=== PATIENT | female | born 1940 | race Caucasian/White ===

== ENCOUNTER 2018-01-12 20:20 | Inpatient (IN) | payer OTHER ==
[~2018-01-12] VITALS: Ht 154.9 cm; Wt 61.3 kg
[~2018-01-12 20:20] MED LIST: ATOR10TA68 PO; DONE10TA37 PO; LEVE500T9 PO; LISI5TAB PO; PRO40 PO
[2018-01-12 20:40] VITALS: BP_SYST 122
[2018-01-12] MEDS ORDERED: NACL 0.9% 1,000 ML IV ONE (21:15)
[2018-01-12] MEDS ORDERED: PANTOPRAZOLE SODIUM 40 MG/VIAL (PROTONIX) IVP ONE (21:15)
[2018-01-12] MEDS ORDERED: ONDANSETRON HCL 4 MG/2 ML VIAL IVP ONE (22:00)
[2018-01-12 22:18] LABS: MEAN CORPUSCULAR HEMOGLOBIN 21 pg (27-31); MEAN CORPUSCULAR HGB CONC 31 % (32-36); MEAN CORPUSCULAR VOLUME 67 fL (79.0-98.0); PLATELET COUNT (AUTO) 494 K/uL (130-430); RED BLOOD CELL COUNT(AUTO) 3.22 MIL/uL (4.2-6.2); WHITE BLOOD COUNT (AUTO) 25.2 K/uL (4.8-10.8)
[2018-01-12 22:26] LABS: HEMATOCRIT 21.6 % (36-48); HEMOGLOBIN 6.7 g/dL (12.0-16.0)
[2018-01-12 22:50] LABS: BASOPHILS % (MANUAL) 0 % (0-2); EOSINOPHILS % (MANUAL) 0 % (0-7); LYMPHOCYTES % (MANUAL) 2 % (20-46); MONOCYTES % (MANUAL) 3 % (0-11)
[2018-01-12 22:55] LABS: ANION GAP 13 (5-15); CALCIUM 10.2 mg/dL (8.4-11.0); CHLORIDE 101 mmol/L (98-107); CREATININE 2.13 mg/dL (0.55-1.30); GLUCOSE 187 mg/dL (70-99); POTASSIUM 4.3 mmol/L (3.5-5.1); SODIUM SERUM 136 mmol/L (136-145); UREA NITROGEN, BLOOD 34 mg/dL (8-21)
[2018-01-12 22:56] LABS: PROTHROMBIN TIME 9.8 SECS (9.5-12.5)
[2018-01-12 22:59] LABS: ALANINE AMINOTRANSFERASE 40 U/L (12-78); ALBUMIN 3.7 g/dL (3.4-4.8); ASPARTATE AMINOTRANSFERASE 76 U/L (10-37); TOTAL BILIRUBIN 0.4 mg/dL (0.0-1.0)
[2018-01-12] MEDS ORDERED: NACL 0.9% 500 ML IV ONE (23:00)
[2018-01-12] MEDS ORDERED: LEVOFLOXACIN 500 MG/D5W 100 ML IV ONE (23:15)
[2018-01-12] MEDS ORDERED: CLOPIDOGREL BISULFATE 75 MG TABLET PO ONE (23:15)
[2018-01-12 23:26] LABS: BILIRUBIN,URINE NEGATIVE (NEGATIVE); BLOOD, URINE 1+ (NEGATIVE); CLARITY/URINE CLOUDY (CLEAR); COLOR,URINE YELLOW (YELLOW); GLUCOSE,URINE NEGATIVE (NEGATIVE); KETONES,URINE NEGATIVE (NEGATIVE); LEUKOCYTE ESTERASE ,URINE 2+ (NEGATIVE); NITRITE, URINE POSITIVE (NEGATIVE); PROTEIN URINE NEGATIVE (NEGATIVE); UROBILINOGEN,URINE 0.2 (0.2-1.0)
[2018-01-12 23:36] LABS: BACTERIA,URINE MANY /HPF (None Seen); WBC,URINE 20-50 /HPF (0-3)
[2018-01-12] MEDS ORDERED: NACL 0.9% 1,000 ML IV SCH (23:45)
[2018-01-13] VITALS (30 sets, daily range): BP systolic 68–149
[2018-01-13] MEDS ORDERED: IPRATROPIUM/ALBUTEROL SULFATE 3 ML AMPUL.NEB INH ONE
[2018-01-13] MEDS ORDERED: NOREPINEPHRINE 4 MG/4 ML VIAL IV ONE ×5 (01:33→16:24)
[2018-01-13] MEDS: NOREPINEPHRINE BITARTRATE 4 MG in NS 246 ML IV PRN ×5 (03:54→21:51)
[2018-01-13] MEDS ORDERED: NS 500 ML IV ONE (04:15)
[2018-01-13] MEDS ORDERED: ALBUTEROL SULFATE 0.083% 2.5 MG/3 ML VIAL.NEB INH SCH (06:15)
[2018-01-13] MEDS ORDERED: IPRATROPIUM BROM 0.5 MG/2.5 ML VIAL.NEB (ATROVENT) INH SCH (06:15)
[2018-01-13] MEDS: PIPERACILLIN/TAZO 3.375/DEX-IS 50 ML IV SCH ×3 (06:15→17:54)
[2018-01-13] MEDS: levETIRAcetam 500 MG in NS 100 ML IV SCH ×3 (06:15→21:50)
[2018-01-13 07:08] LABS: HEMATOCRIT 27.6 % (36-48); HEMOGLOBIN 8.9 g/dL (12.0-16.0)
[2018-01-13] MEDS ORDERED: PANTOPRAZOLE SODIUM 80 MG in NS 100 ML IV ONE (09:00)
[2018-01-13] MEDS ORDERED: methylPREDNISolone SOD SUCC 40 MG/ML VIAL IVP SCH (09:30)
[2018-01-13] MEDS ORDERED: methylPREDNISolone SOD SUCC 40 MG/ML VIAL IVP ONE (09:30)
[2018-01-13] MEDS ORDERED: SODIUM BICARBONATE 8.4% JECT 50 MEQ/50 ML SYRINGE IVP ONE (09:30)
[2018-01-13] MEDS ORDERED: MIDAZOLAM HCL 5 MG/5 ML VIAL ONE (11:11)
[2018-01-13] MEDS ORDERED: HYDROCORTISONE SOD SUCC 100 MG/2 ML VIAL IVP ONE (13:00)
[2018-01-13] MEDS: IPRATROPIUM BROM 0.5 MG/2.5 ML VIAL.NEB (ATROVENT) INH SCH ×2 (13:00→19:43)
[2018-01-13] MEDS: ALBUTEROL SULFATE 0.083% 2.5 MG/3 ML VIAL.NEB INH SCH ×2 (13:00→19:43)
[2018-01-13] MEDS: MORPHINE 4 MG/ML INJ. SYRINGE IVP PRN (13:08)
[2018-01-13] MEDS: LORazepam 2 MG/ML VIAL IVP PRN (13:08)
[2018-01-13 13:15] LABS: ANION GAP 16 (5-15); CALCIUM 7.9 mg/dL (8.4-11.0); CHLORIDE 111 mmol/L (98-107); CREATININE 2.43 mg/dL (0.55-1.30); GLUCOSE 144 mg/dL (70-99); SODIUM SERUM 146 mmol/L (136-145); UREA NITROGEN, BLOOD 35 mg/dL (8-21)
[2018-01-13 13:19] LABS: HEMATOCRIT 24.2 % (36-48); HEMOGLOBIN 8.2 g/dL (12.0-16.0); MEAN CORPUSCULAR HEMOGLOBIN 25 pg (27-31); MEAN CORPUSCULAR HGB CONC 34 % (32-36); MEAN CORPUSCULAR VOLUME 75 fL (79.0-98.0); PLATELET COUNT (AUTO) 277 K/uL (130-430); RED BLOOD CELL COUNT(AUTO) 3.22 MIL/uL (4.2-6.2); RED CELL DISTRIBUTION WIDTH 21.6 % (9.0-15.0); WHITE BLOOD COUNT (AUTO) 29.4 K/uL (4.8-10.8)
[2018-01-13 13:20] LABS: ALANINE AMINOTRANSFERASE 82 U/L (12-78); ALBUMIN 2.6 g/dL (3.4-4.8); ASPARTATE AMINOTRANSFERASE 217 U/L (10-37); TOTAL BILIRUBIN 0.5 mg/dL (0.0-1.0)
[2018-01-13 13:44] LABS: BAND % (MANUAL) 4 % (0-6); EOSINOPHILS % (MANUAL) 0 % (0-7); MONOCYTES % (MANUAL) 3 % (0-11)
[2018-01-13 13:45] LABS: BASOPHILS % (MANUAL) 0 % (0-2); LYMPHOCYTES % (MANUAL) 8 % (20-46)
[2018-01-13] MEDS: HYDROCORTISONE SOD SUCC 100 MG/2 ML VIAL IVP SCH ×2 (14:00→22:16)
[2018-01-13] MEDS ORDERED: ETOMIDATE 20 MG/ 10 ML VIAL (AMIDATE) IVP ONE (14:43)
[2018-01-13] MEDS: PANTOPRAZOLE SODIUM 40 MG in NS 50 ML IV SCH ×3 (16:40→19:36)
[2018-01-13] MEDS: SODIUM BICARBONATE 8.4% JECT 50 MEQ in 0.45% NACL 1,000 ML IV SCH (17:54)
[2018-01-13 20:06] LABS: HEMATOCRIT 27.8 % (36-48); MEAN CORPUSCULAR HEMOGLOBIN 24 pg (27-31); MEAN CORPUSCULAR HGB CONC 32 % (32-36); MEAN CORPUSCULAR VOLUME 75 fL (79.0-98.0); PLATELET COUNT (AUTO) 259 K/uL (130-430); RED BLOOD CELL COUNT(AUTO) 3.73 MIL/uL (4.2-6.2); RED CELL DISTRIBUTION WIDTH 22.3 % (9.0-15.0)
[2018-01-13 20:17] LABS: WHITE BLOOD COUNT (AUTO) 35.5 K/uL (4.8-10.8)
[2018-01-13 21:27] LABS: BAND % (MANUAL) 7 % (0-6); BASOPHILS % (MANUAL) 0 % (0-2); EOSINOPHILS % (MANUAL) 0 % (0-7); LYMPHOCYTES % (MANUAL) 7 % (20-46); MONOCYTES % (MANUAL) 1 % (0-11)
[2018-01-14] VITALS (34 sets, daily range): BP systolic 100–139
[2018-01-14] MEDS: PIPERACILLIN/TAZO 3.375/DEX-IS 50 ML IV SCH ×4 (00:36→18:11)
[2018-01-14] MEDS: PANTOPRAZOLE SODIUM 40 MG in NS 50 ML IV SCH ×5 (00:39→22:23)
[2018-01-14] MEDS: ALBUTEROL SULFATE 0.083% 2.5 MG/3 ML VIAL.NEB INH SCH ×4 (00:59→19:45)
[2018-01-14] MEDS: IPRATROPIUM BROM 0.5 MG/2.5 ML VIAL.NEB (ATROVENT) INH SCH ×4 (00:59→19:45)
[2018-01-14] MEDS: LORazepam 2 MG/ML VIAL IVP PRN (02:13)
[2018-01-14 05:27] LABS: BASOPHILS # (AUTO) 0.1 K/uL (0.0-0.2); BASOPHILS % (AUTO) 0.4 % (0.0-2.0); EOSINOPHILS % (AUTO) 0.1 % (0.0-4.0); HEMATOCRIT 23.7 % (36-48); HEMOGLOBIN 7.8 g/dL (12.0-16.0); LYMPHOCYTES # (AUTO) 0.4 K/uL (1.0-5.5); LYMPHOCYTES % (AUTO) 1.4 % (20.5-51.5); MEAN CORPUSCULAR HEMOGLOBIN 24 pg (27-31); MEAN CORPUSCULAR HGB CONC 33 % (32-36); MEAN CORPUSCULAR VOLUME 73 fL (79.0-98.0); MONOCYTES # (AUTO) 0.3 K/uL (0.0-1.0); MONOCYTES % (AUTO) 0.9 % (1.7-9.3); NEUTROPHILS # (AUTO) 28.9 K/uL (1.8-7.7); NEUTROPHILS % (AUTO) 97.2 % (40.0-70.0); PLATELET COUNT (AUTO) 201 K/uL (130-430); RED BLOOD CELL COUNT(AUTO) 3.26 MIL/uL (4.2-6.2); WHITE BLOOD COUNT (AUTO) 29.6 K/uL (4.8-10.8)
[2018-01-14 05:38] LABS: ALANINE AMINOTRANSFERASE 70 U/L (12-78); ANION GAP 12 (5-15); ASPARTATE AMINOTRANSFERASE 170 U/L (10-37); BILIRUBIN,DIRECT 0.3 mg/dL (0.0-0.3); CALCIUM 7.2 mg/dL (8.4-11.0); CHLORIDE 111 mmol/L (98-107); CREATININE 2.42 mg/dL (0.55-1.30); GLUCOSE 152 mg/dL (70-99); POTASSIUM 3.5 mmol/L (3.5-5.1); SODIUM SERUM 143 mmol/L (136-145); TOTAL BILIRUBIN 0.9 mg/dL (0.0-1.0); UREA NITROGEN, BLOOD 35 mg/dL (8-21)
[2018-01-14] MEDS: HYDROCORTISONE SOD SUCC 100 MG/2 ML VIAL IVP SCH ×3 (05:43→22:24)
[2018-01-14] MEDS: SODIUM BICARBONATE 8.4% JECT 50 MEQ in 0.45% NACL 1,000 ML IV SCH ×2 (06:08→19:16)
[2018-01-14] MEDS: levETIRAcetam 500 MG in NS 100 ML IV SCH ×2 (10:23→20:46)
[2018-01-14] MEDS ORDERED: NACL 0.9% 1,000 ML IV ONE (11:00)
[2018-01-14] MEDS ORDERED: VANCOMYCIN HCL 1 GM/NS PREMIX 250 ML IV ONE (12:30)
[2018-01-14] MEDS: MORPHINE 4 MG/ML INJ. SYRINGE IVP PRN (18:43)
[2018-01-14] MEDS ORDERED: ACETAMINOPHEN 650 MG/20.3 ML UDC GT PRN (22:40)
[2018-01-15] VITALS (34 sets, daily range): BP systolic 110–138
[2018-01-15] MEDS: PIPERACILLIN/TAZO 3.375/DEX-IS 50 ML IV SCH ×5 (00:15→23:04)
[2018-01-15] MEDS: IPRATROPIUM BROM 0.5 MG/2.5 ML VIAL.NEB (ATROVENT) INH SCH ×4 (00:51→19:35)
[2018-01-15] MEDS: ALBUTEROL SULFATE 0.083% 2.5 MG/3 ML VIAL.NEB INH SCH ×4 (00:51→19:36)
[2018-01-15] MEDS: PANTOPRAZOLE SODIUM 40 MG in NS 50 ML IV SCH ×5 (03:16→21:52)
[2018-01-15 03:51] LABS: HEMATOCRIT 31.9 % (36-48); HEMOGLOBIN 10.8 g/dL (12.0-16.0)
[2018-01-15] MEDS: HYDROCORTISONE SOD SUCC 100 MG/2 ML VIAL IVP SCH ×3 (05:58→21:51)
[2018-01-15 06:27] LABS: HEMATOCRIT 32.1 % (36-48); HEMOGLOBIN 10.9 g/dL (12.0-16.0); MEAN CORPUSCULAR HEMOGLOBIN 27 pg (27-31); MEAN CORPUSCULAR HGB CONC 34 % (32-36); MEAN CORPUSCULAR VOLUME 79 fL (79.0-98.0); PLATELET COUNT (AUTO) 161 K/uL (130-430); RED BLOOD CELL COUNT(AUTO) 4.07 MIL/uL (4.2-6.2)
[2018-01-15 06:32] LABS: WHITE BLOOD COUNT (AUTO) 32.2 K/uL (4.8-10.8)
[2018-01-15 06:48] LABS: ALANINE AMINOTRANSFERASE 72 U/L (12-78); ALBUMIN 1.7 g/dL (3.4-4.8); ANION GAP 10 (5-15); ASPARTATE AMINOTRANSFERASE 135 U/L (10-37); CALCIUM 7.1 mg/dL (8.4-11.0); CHLORIDE 115 mmol/L (98-107); CREATININE 2.33 mg/dL (0.55-1.30); GLUCOSE 134 mg/dL (70-99); POTASSIUM 3.2 mmol/L (3.5-5.1); SODIUM SERUM 144 mmol/L (136-145); TOTAL BILIRUBIN 1.3 mg/dL (0.0-1.0); UREA NITROGEN, BLOOD 38 mg/dL (8-21)
[2018-01-15 07:35] LABS: BAND % (MANUAL) 5 % (0-6); BASOPHILS % (MANUAL) 0 % (0-2); EOSINOPHILS % (MANUAL) 0 % (0-7); LYMPHOCYTES % (MANUAL) 5 % (20-46); MONOCYTES % (MANUAL) 1 % (0-11)
[2018-01-15] MEDS: SODIUM BICARBONATE 8.4% JECT 50 MEQ in 0.45% NACL 1,000 ML IV SCH ×2 (08:21→22:02)
[2018-01-15] MEDS ORDERED: LEVOFLOXACIN 500 MG/D5W 100 ML IV SCH (09:00)
[2018-01-15] MEDS: levETIRAcetam 500 MG in NS 100 ML IV SCH ×2 (10:11→20:15)
[2018-01-15] MEDS ORDERED: CALCIUM GLUCONATE 2 GM in NS 100 ML IV ONE (13:30)
[2018-01-15] MEDS ORDERED: POTASSIUM CHLORIDE 40 MEQ in D5W 250 ML IV ONE (13:30)
[2018-01-15] MEDS ORDERED: FUROSEMIDE 20 MG/2 ML VIAL IVP ONE (14:00)
[2018-01-15] MEDS ORDERED: HYDROCORTISONE SOD SUCC 100 MG/2 ML VIAL ONE (21:48)
[2018-01-16] VITALS (33 sets, daily range): BP systolic 103–146
[2018-01-16] MEDS: ALBUTEROL SULFATE 0.083% 2.5 MG/3 ML VIAL.NEB INH SCH ×4 (01:45→19:44)
[2018-01-16] MEDS: IPRATROPIUM BROM 0.5 MG/2.5 ML VIAL.NEB (ATROVENT) INH SCH ×4 (01:45→19:44)
[2018-01-16] MEDS: PANTOPRAZOLE SODIUM 40 MG in NS 50 ML IV SCH ×5 (03:08→23:00)
[2018-01-16] MEDS: HYDROCORTISONE SOD SUCC 100 MG/2 ML VIAL IVP SCH ×3 (05:31→21:26)
[2018-01-16] MEDS ORDERED: HYDROCORTISONE SOD SUCC 100 MG/2 ML VIAL ONE (05:31)
[2018-01-16] MEDS: PIPERACILLIN/TAZO 3.375/DEX-IS 50 ML IV SCH ×3 (05:32→17:45)
[2018-01-16 06:18] LABS: HEMATOCRIT 32.1 % (36-48); HEMOGLOBIN 10.5 g/dL (12.0-16.0); MEAN CORPUSCULAR HEMOGLOBIN 26 pg (27-31); MEAN CORPUSCULAR HGB CONC 33 % (32-36); MEAN CORPUSCULAR VOLUME 79 fL (79.0-98.0); PLATELET COUNT (AUTO) 136 K/uL (130-430); RED BLOOD CELL COUNT(AUTO) 4.07 MIL/uL (4.2-6.2)
[2018-01-16 06:22] LABS: WHITE BLOOD COUNT (AUTO) 37.8 K/uL (4.8-10.8)
[2018-01-16 07:03] LABS: ANION GAP 13 (5-15); CALCIUM 7.5 mg/dL (8.4-11.0); CHLORIDE 113 mmol/L (98-107); CREATININE 2.19 mg/dL (0.55-1.30); GLUCOSE 107 mg/dL (70-99); POTASSIUM 3.3 mmol/L (3.5-5.1); SODIUM SERUM 148 mmol/L (136-145); UREA NITROGEN, BLOOD 39 mg/dL (8-21)
[2018-01-16 07:20] LABS: ALANINE AMINOTRANSFERASE 61 U/L (12-78); ALBUMIN 1.6 g/dL (3.4-4.8); ASPARTATE AMINOTRANSFERASE 155 U/L (10-37); TOTAL BILIRUBIN 1.2 mg/dL (0.0-1.0)
[2018-01-16 07:37] LABS: BAND % (MANUAL) 5 % (0-6); BASOPHILS % (MANUAL) 0 % (0-2); EOSINOPHILS % (MANUAL) 0 % (0-7); LYMPHOCYTES % (MANUAL) 4 % (20-46); MONOCYTES % (MANUAL) 4 % (0-11)
[2018-01-16] MEDS: levETIRAcetam 500 MG in NS 100 ML IV SCH ×3 (11:13→21:25)
[2018-01-16] MEDS ORDERED: POTASSIUM CHLORIDE 20 MEQ/PKT PACKET PO ONE (15:15)
[2018-01-16] MEDS: LORazepam 2 MG/ML VIAL IVP PRN (15:57)
[2018-01-16] MEDS: 0.45% NACL 1,000 ML IV SCH (15:58)
[2018-01-16] MEDS ORDERED: FUROSEMIDE 20 MG/2 ML VIAL IVP ONE (17:00)
[2018-01-17] VITALS (29 sets, daily range): BP systolic 96–161
[2018-01-17] MEDS: PIPERACILLIN/TAZO 3.375/DEX-IS 50 ML IV SCH ×2 (00:11→05:47)
[2018-01-17] MEDS: PANTOPRAZOLE SODIUM 40 MG in NS 50 ML IV SCH ×2 (01:04→05:48)
[2018-01-17] MEDS: IPRATROPIUM BROM 0.5 MG/2.5 ML VIAL.NEB (ATROVENT) INH SCH ×4 (01:14→19:42)
[2018-01-17] MEDS: ALBUTEROL SULFATE 0.083% 2.5 MG/3 ML VIAL.NEB INH SCH ×4 (01:14→19:42)
[2018-01-17 06:35] LABS: ALANINE AMINOTRANSFERASE 60 U/L (12-78); ALBUMIN 1.6 g/dL (3.4-4.8); ANION GAP 9 (5-15); ASPARTATE AMINOTRANSFERASE 131 U/L (10-37); CALCIUM 8.2 mg/dL (8.4-11.0); CHLORIDE 111 mmol/L (98-107); CREATININE 2.36 mg/dL (0.55-1.30); GLUCOSE 116 mg/dL (70-99); POTASSIUM 4.2 mmol/L (3.5-5.1); SODIUM SERUM 144 mmol/L (136-145); TOTAL BILIRUBIN 1.2 mg/dL (0.0-1.0); UREA NITROGEN, BLOOD 45 mg/dL (8-21)
[2018-01-17 06:43] LABS: HEMATOCRIT 30.6 % (36-48); HEMOGLOBIN 10.6 g/dL (12.0-16.0); MEAN CORPUSCULAR HEMOGLOBIN 27 pg (27-31); MEAN CORPUSCULAR HGB CONC 35 % (32-36); MEAN CORPUSCULAR VOLUME 78 fL (79.0-98.0); PLATELET COUNT (AUTO) 142 K/uL (130-430); RED BLOOD CELL COUNT(AUTO) 3.92 MIL/uL (4.2-6.2); RED CELL DISTRIBUTION WIDTH 24.4 % (9.0-15.0)
[2018-01-17 06:55] LABS: WHITE BLOOD COUNT (AUTO) 38.3 K/uL (4.8-10.8)
[2018-01-17 07:45] LABS: BAND % (MANUAL) 6 % (0-6); BASOPHILS % (MANUAL) 0 % (0-2); EOSINOPHILS % (MANUAL) 0 % (0-7); LYMPHOCYTES % (MANUAL) 1 % (20-46); MONOCYTES % (MANUAL) 3 % (0-11)
[2018-01-17] MEDS: 0.45% NACL 1,000 ML IV SCH ×2 (07:55→15:21)
[2018-01-17] MEDS: HYDROCORTISONE SOD SUCC 100 MG/2 ML VIAL IVP SCH ×2 (10:02→20:23)
[2018-01-17] MEDS: levETIRAcetam 500 MG in NS 100 ML IV SCH ×2 (10:02→21:03)
[2018-01-17] MEDS: PANTOPRAZOLE SODIUM 40 MG/VIAL (PROTONIX) IVP SCH ×2 (10:03→20:22)
[2018-01-17] MEDS ORDERED: PIPERACILLIN/TAZO 3.375/DEX-IS 50 ML IV SCH ×2 (12:00)
[2018-01-17] MEDS: MORPHINE 4 MG/ML INJ. SYRINGE IVP PRN ×2 (12:26→22:32)
[2018-01-17] MEDS: CEFEPIME 1 GM in D5W 50 ML IV SCH (15:17)
[2018-01-17] MEDS ORDERED: FUROSEMIDE 40 MG/4 ML VIAL IVP ONE (16:45)
[2018-01-17] MEDS: ALBUMIN HUMAN 25% 100 ML IV SCH ×3 (16:56→23:29)
[2018-01-17] MEDS: metroNIDAZOLE 250 mg/NS 50 ML IV SCH (22:08)
[2018-01-17] MEDS: LORazepam 2 MG/ML VIAL IVP PRN (22:14)
[2018-01-18] VITALS (26 sets, daily range): BP systolic 102–151
[2018-01-18] MEDS: IPRATROPIUM BROM 0.5 MG/2.5 ML VIAL.NEB (ATROVENT) INH SCH ×4 (02:43→19:32)
[2018-01-18] MEDS: ALBUTEROL SULFATE 0.083% 2.5 MG/3 ML VIAL.NEB INH SCH ×4 (02:43→19:31)
[2018-01-18] MEDS: MORPHINE 4 MG/ML INJ. SYRINGE IVP PRN (04:25)
[2018-01-18] MEDS: metroNIDAZOLE 250 mg/NS 50 ML IV SCH ×2 (06:04→15:05)
[2018-01-18 06:36] LABS: HEMOGLOBIN 9.3 g/dL (12.0-16.0); MEAN CORPUSCULAR HEMOGLOBIN 26 pg (27-31); MEAN CORPUSCULAR HGB CONC 33 % (32-36); MEAN CORPUSCULAR VOLUME 79 fL (79.0-98.0); PLATELET COUNT (AUTO) 103 K/uL (130-430); RED BLOOD CELL COUNT(AUTO) 3.56 MIL/uL (4.2-6.2); RED CELL DISTRIBUTION WIDTH 24.4 % (9.0-15.0); WHITE BLOOD COUNT (AUTO) 25.5 K/uL (4.8-10.8)
[2018-01-18 06:49] LABS: ALANINE AMINOTRANSFERASE 41 U/L (12-78); ALBUMIN 3.1 g/dL (3.4-4.8); ANION GAP 11 (5-15); ASPARTATE AMINOTRANSFERASE 71 U/L (10-37); CHLORIDE 110 mmol/L (98-107); CREATININE 2.29 mg/dL (0.55-1.30); GLUCOSE 113 mg/dL (70-99); POTASSIUM 3.5 mmol/L (3.5-5.1); SODIUM SERUM 146 mmol/L (136-145); TOTAL BILIRUBIN 1.1 mg/dL (0.0-1.0); UREA NITROGEN, BLOOD 51 mg/dL (8-21)
[2018-01-18] MEDS ORDERED: FUROSEMIDE 40 MG/4 ML VIAL IVP ONE (08:30)
[2018-01-18] MEDS ORDERED: MORPHINE 4 MG/ML INJ. SYRINGE IVP PRN (08:45)
[2018-01-18] MEDS: PANTOPRAZOLE SODIUM 40 MG/VIAL (PROTONIX) IVP SCH ×2 (08:55→20:38)
[2018-01-18] MEDS: HYDROCORTISONE SOD SUCC 100 MG/2 ML VIAL IVP SCH ×2 (08:55→20:38)
[2018-01-18] MEDS ORDERED: HALOPERIDOL LACTATE 5 MG/ML VIAL IVP PRN (09:00)
[2018-01-18] MEDS: levETIRAcetam 500 MG in NS 100 ML IV SCH ×2 (09:16→20:37)
[2018-01-18 09:52] LABS: BAND % (MANUAL) 2 % (0-6); BASOPHILS % (MANUAL) 0 % (0-2); EOSINOPHILS % (MANUAL) 0 % (0-7); LYMPHOCYTES % (MANUAL) 6 % (20-46); MONOCYTES % (MANUAL) 2 % (0-11)
[2018-01-18] MEDS: CEFEPIME 1 GM in D5W 50 ML IV SCH (16:03)
[2018-01-19] VITALS (28 sets, daily range): BP systolic 122–150
[2018-01-19] MEDS: metroNIDAZOLE 250 mg/NS 50 ML IV SCH ×4 (00:04→22:04)
[2018-01-19] MEDS: IPRATROPIUM BROM 0.5 MG/2.5 ML VIAL.NEB (ATROVENT) INH SCH ×4 (01:02→19:31)
[2018-01-19] MEDS: ALBUTEROL SULFATE 0.083% 2.5 MG/3 ML VIAL.NEB INH SCH ×4 (01:02→19:31)
[2018-01-19 06:45] LABS: HEMATOCRIT 30.5 % (36-48); HEMOGLOBIN 10.1 g/dL (12.0-16.0); MEAN CORPUSCULAR HEMOGLOBIN 26 pg (27-31); MEAN CORPUSCULAR HGB CONC 33 % (32-36); MEAN CORPUSCULAR VOLUME 78 fL (79.0-98.0); PLATELET COUNT (AUTO) 164 K/uL (130-430); RED BLOOD CELL COUNT(AUTO) 3.89 MIL/uL (4.2-6.2); RED CELL DISTRIBUTION WIDTH 25.4 % (9.0-15.0)
[2018-01-19 07:03] LABS: ALANINE AMINOTRANSFERASE 39 U/L (12-78); ALBUMIN 2.5 g/dL (3.4-4.8); ANION GAP 11 (5-15); ASPARTATE AMINOTRANSFERASE 50 U/L (10-37); CALCIUM 9.5 mg/dL (8.4-11.0); CHLORIDE 113 mmol/L (98-107); CREATININE 2.34 mg/dL (0.55-1.30); GLUCOSE 138 mg/dL (70-99); POTASSIUM 3.1 mmol/L (3.5-5.1); SODIUM SERUM 148 mmol/L (136-145); TOTAL BILIRUBIN 0.9 mg/dL (0.0-1.0); UREA NITROGEN, BLOOD 66 mg/dL (8-21)
[2018-01-19 08:09] LABS: BASOPHILS % (MANUAL) 0 % (0-2); EOSINOPHILS % (MANUAL) 0 % (0-7); LYMPHOCYTES % (MANUAL) 3 % (20-46); MONOCYTES % (MANUAL) 6 % (0-11)
[2018-01-19] MEDS: HYDROCORTISONE SOD SUCC 100 MG/2 ML VIAL IVP SCH ×2 (08:12→20:37)
[2018-01-19] MEDS: PANTOPRAZOLE SODIUM 40 MG/VIAL (PROTONIX) IVP SCH ×2 (08:12→20:37)
[2018-01-19] MEDS: levETIRAcetam 500 MG in NS 100 ML IV SCH ×2 (08:13→20:37)
[2018-01-19] MEDS ORDERED: POTASSIUM CHLORIDE 20 MEQ/PKT PACKET PO ONE (08:30)
[2018-01-19] MEDS ORDERED: 0.45% NACL 1,000 ML IV SCH (11:15)
[2018-01-19] MEDS ORDERED: FUROSEMIDE 20 MG/2 ML VIAL IVP ONE (11:15)
[2018-01-19] MEDS: CEFEPIME 1 GM in D5W 50 ML IV SCH (15:05)
[2018-01-20] VITALS (30 sets, daily range): BP systolic 123–150
[2018-01-20] MEDS: ALBUTEROL SULFATE 0.083% 2.5 MG/3 ML VIAL.NEB INH SCH ×4 (01:01→19:35)
[2018-01-20] MEDS: IPRATROPIUM BROM 0.5 MG/2.5 ML VIAL.NEB (ATROVENT) INH SCH ×4 (01:01→19:35)
[2018-01-20] MEDS: LORazepam 2 MG/ML VIAL IVP PRN ×2 (01:04→22:52)
[2018-01-20] MEDS: metroNIDAZOLE 250 mg/NS 50 ML IV SCH ×3 (05:39→21:39)
[2018-01-20 07:09] LABS: ALANINE AMINOTRANSFERASE 40 U/L (12-78); ALBUMIN 2.1 g/dL (3.4-4.8); ANION GAP 10 (5-15); ASPARTATE AMINOTRANSFERASE 55 U/L (10-37); CALCIUM 9.1 mg/dL (8.4-11.0); CHLORIDE 117 mmol/L (98-107); GLUCOSE 140 mg/dL (70-99); POTASSIUM 3.1 mmol/L (3.5-5.1); SODIUM SERUM 151 mmol/L (136-145); TOTAL BILIRUBIN 0.8 mg/dL (0.0-1.0); UREA NITROGEN, BLOOD 76 mg/dL (8-21)
[2018-01-20 07:19] LABS: BASOPHILS # (AUTO) 0.1 K/uL (0.0-0.2); BASOPHILS % (AUTO) 0.3 % (0.0-2.0); HEMATOCRIT 29.8 % (36-48); HEMOGLOBIN 10.1 g/dL (12.0-16.0); LYMPHOCYTES # (AUTO) 0.4 K/uL (1.0-5.5); LYMPHOCYTES % (AUTO) 1.5 % (20.5-51.5); MEAN CORPUSCULAR HEMOGLOBIN 27 pg (27-31); MEAN CORPUSCULAR HGB CONC 34 % (32-36); MEAN CORPUSCULAR VOLUME 79 fL (79.0-98.0); MONOCYTES % (AUTO) 3.8 % (1.7-9.3); NEUTROPHILS # (AUTO) 25.2 K/uL (1.8-7.7); NEUTROPHILS % (AUTO) 94.4 % (40.0-70.0); PLATELET COUNT (AUTO) 192 K/uL (130-430); RED BLOOD CELL COUNT(AUTO) 3.77 MIL/uL (4.2-6.2); RED CELL DISTRIBUTION WIDTH 25.4 % (9.0-15.0)
[2018-01-20 07:25] LABS: WHITE BLOOD COUNT (AUTO) 26.7 K/uL (4.8-10.8)
[2018-01-20] MEDS: levETIRAcetam 500 MG in NS 100 ML IV SCH ×2 (08:07→20:23)
[2018-01-20] MEDS: PANTOPRAZOLE SODIUM 40 MG/VIAL (PROTONIX) IVP SCH ×2 (08:07→20:22)
[2018-01-20] MEDS: HYDROCORTISONE SOD SUCC 100 MG/2 ML VIAL IVP SCH ×2 (08:08→20:23)
[2018-01-20] MEDS ORDERED: POTASSIUM CHLORIDE 40 MEQ, LIDOCAINE JECT 2% PF 100 MG 75 MG in NS 250 ML IV ONE (08:45)
[2018-01-20] MEDS: D5W 1,000 ML IV SCH ×2 (09:52→21:36)
[2018-01-20] MEDS: CEFEPIME 1 GM in D5W 50 ML IV SCH (14:16)
[2018-01-21] VITALS (31 sets, daily range): BP systolic 133–152
[2018-01-21] MEDS: IPRATROPIUM BROM 0.5 MG/2.5 ML VIAL.NEB (ATROVENT) INH SCH ×4 (01:05→19:00)
[2018-01-21] MEDS: ALBUTEROL SULFATE 0.083% 2.5 MG/3 ML VIAL.NEB INH SCH ×4 (01:05→19:00)
[2018-01-21] MEDS: LORazepam 2 MG/ML VIAL IVP PRN ×2 (04:17→18:01)
[2018-01-21] MEDS: metroNIDAZOLE 250 mg/NS 50 ML IV SCH ×3 (05:53→21:44)
[2018-01-21 07:08] LABS: BASOPHILS # (AUTO) 0.1 K/uL (0.0-0.2); BASOPHILS % (AUTO) 0.4 % (0.0-2.0); EOSINOPHILS # (AUTO) 0.1 K/uL (0.0-0.4); EOSINOPHILS % (AUTO) 0.2 % (0.0-4.0); HEMATOCRIT 28.7 % (36-48); HEMOGLOBIN 9.5 g/dL (12.0-16.0); LYMPHOCYTES # (AUTO) 0.8 K/uL (1.0-5.5); LYMPHOCYTES % (AUTO) 2.7 % (20.5-51.5); MEAN CORPUSCULAR HEMOGLOBIN 26 pg (27-31); MEAN CORPUSCULAR HGB CONC 33 % (32-36); MEAN CORPUSCULAR VOLUME 79 fL (79.0-98.0); MONOCYTES # (AUTO) 0.6 K/uL (0.0-1.0); MONOCYTES % (AUTO) 2.1 % (1.7-9.3); NEUTROPHILS # (AUTO) 26.3 K/uL (1.8-7.7); NEUTROPHILS % (AUTO) 94.6 % (40.0-70.0); PLATELET COUNT (AUTO) 211 K/uL (130-430); RED BLOOD CELL COUNT(AUTO) 3.63 MIL/uL (4.2-6.2); RED CELL DISTRIBUTION WIDTH 26.1 % (9.0-15.0)
[2018-01-21 07:11] LABS: ALANINE AMINOTRANSFERASE 42 U/L (12-78); ANION GAP 12 (5-15); ASPARTATE AMINOTRANSFERASE 48 U/L (10-37); CALCIUM 8.8 mg/dL (8.4-11.0); CHLORIDE 108 mmol/L (98-107); CREATININE 3.75 mg/dL (0.55-1.30); GLUCOSE 177 mg/dL (70-99); POTASSIUM 3.5 mmol/L (3.5-5.1); SODIUM SERUM 141 mmol/L (136-145); TOTAL BILIRUBIN 0.6 mg/dL (0.0-1.0); UREA NITROGEN, BLOOD 87 mg/dL (8-21)
[2018-01-21 07:16] LABS: WHITE BLOOD COUNT (AUTO) 27.9 K/uL (4.8-10.8)
[2018-01-21] MEDS: levETIRAcetam 500 MG in NS 100 ML IV SCH ×2 (09:00→20:42)
[2018-01-21] MEDS: PANTOPRAZOLE SODIUM 40 MG/VIAL (PROTONIX) IVP SCH ×2 (09:00→20:42)
[2018-01-21] MEDS: HYDROCORTISONE SOD SUCC 100 MG/2 ML VIAL IVP SCH ×2 (11:10→20:42)
[2018-01-21] MEDS ORDERED: FLUCONAZOLE 200 mg/ NS 100 ML IV ONE (11:15)
[2018-01-21] MEDS: D5W 1,000 ML IV SCH (13:00)
[2018-01-21] MEDS: CEFEPIME 1 GM in D5W 50 ML IV SCH (15:47)
[2018-01-22] VITALS (33 sets, daily range): BP systolic 103–159
[2018-01-22] MEDS: IPRATROPIUM BROM 0.5 MG/2.5 ML VIAL.NEB (ATROVENT) INH SCH ×4 (00:59→19:05)
[2018-01-22] MEDS: ALBUTEROL SULFATE 0.083% 2.5 MG/3 ML VIAL.NEB INH SCH ×4 (00:59→19:05)
[2018-01-22] MEDS: D5W 1,000 ML IV SCH ×2 (01:11→08:38)
[2018-01-22] MEDS: metroNIDAZOLE 250 mg/NS 50 ML IV SCH ×3 (05:46→23:31)
[2018-01-22 07:01] LABS: HEMATOCRIT 31.3 % (36-48); HEMOGLOBIN 10.7 g/dL (12.0-16.0); MEAN CORPUSCULAR HEMOGLOBIN 27 pg (27-31); MEAN CORPUSCULAR HGB CONC 34 % (32-36); MEAN CORPUSCULAR VOLUME 80 fL (79.0-98.0); RED BLOOD CELL COUNT(AUTO) 3.93 MIL/uL (4.2-6.2); RED CELL DISTRIBUTION WIDTH 25.9 % (9.0-15.0)
[2018-01-22 07:18] LABS: WHITE BLOOD COUNT (AUTO) 35.5 K/uL (4.8-10.8)
[2018-01-22 07:27] LABS: ALANINE AMINOTRANSFERASE 37 U/L (12-78); ALBUMIN 1.9 g/dL (3.4-4.8); ANION GAP 16 (5-15); ASPARTATE AMINOTRANSFERASE 36 U/L (10-37); CHLORIDE 104 mmol/L (98-107); CREATININE 4.45 mg/dL (0.55-1.30); GLUCOSE 146 mg/dL (70-99); POTASSIUM 3.7 mmol/L (3.5-5.1); SODIUM SERUM 138 mmol/L (136-145); TOTAL BILIRUBIN 0.8 mg/dL (0.0-1.0); UREA NITROGEN, BLOOD 98 mg/dL (8-21)
[2018-01-22 08:14] LABS: BAND % (MANUAL) 5 % (0-6); BASOPHILS % (MANUAL) 0 % (0-2); EOSINOPHILS % (MANUAL) 0 % (0-7); LYMPHOCYTES % (MANUAL) 0 % (20-46); MONOCYTES % (MANUAL) 2 % (0-11)
[2018-01-22] MEDS: levETIRAcetam 500 MG in NS 100 ML IV SCH ×2 (08:35→21:41)
[2018-01-22] MEDS: PANTOPRAZOLE SODIUM 40 MG/VIAL (PROTONIX) IVP SCH ×2 (08:35→21:41)
[2018-01-22] MEDS: HYDROCORTISONE SOD SUCC 100 MG/2 ML VIAL IVP SCH ×2 (08:36→21:40)
[2018-01-22 09:41] LABS: PLATELET COUNT (AUTO) 192 K/uL (130-430)
[2018-01-22] MEDS ORDERED: LEVOFLOXACIN 500 MG/D5W 100 ML IV SCH (12:00)
[2018-01-22] MEDS: CEFEPIME 1 GM in D5W 50 ML IV SCH (14:00)
[2018-01-22] MEDS: 0.45% NACL 1,000 ML IV SCH (18:37)
[2018-01-22] MEDS ORDERED: ACETAMINOPHEN 325 MG TABLET PO PRN (21:30)
[2018-01-22] MEDS: ONDANSETRON HCL 4 MG/2 ML VIAL IVP PRN (21:57)
[2018-01-22] MEDS: METOCLOPRAMIDE HCL 10 MG/2 ML VIAL IVP PRN (23:07)
[2018-01-23] VITALS (36 sets, daily range): BP systolic 114–149
[2018-01-23] MEDS: ALBUTEROL SULFATE 0.083% 2.5 MG/3 ML VIAL.NEB INH SCH ×4 (01:50→19:32)
[2018-01-23] MEDS: IPRATROPIUM BROM 0.5 MG/2.5 ML VIAL.NEB (ATROVENT) INH SCH ×4 (01:50→19:32)
[2018-01-23] MEDS: metroNIDAZOLE 250 mg/NS 50 ML IV SCH ×2 (05:09→13:58)
[2018-01-23] MEDS: 0.45% NACL 1,000 ML IV SCH (05:09)
[2018-01-23 06:28] LABS: HEMATOCRIT 26.9 % (36-48); HEMOGLOBIN 8.9 g/dL (12.0-16.0); MEAN CORPUSCULAR HEMOGLOBIN 26 pg (27-31); MEAN CORPUSCULAR HGB CONC 33 % (32-36); MEAN CORPUSCULAR VOLUME 79 fL (79.0-98.0); RED BLOOD CELL COUNT(AUTO) 3.41 MIL/uL (4.2-6.2); RED CELL DISTRIBUTION WIDTH 26.2 % (9.0-15.0)
[2018-01-23 06:34] LABS: WHITE BLOOD COUNT (AUTO) 41.3 K/uL (4.8-10.8)
[2018-01-23 06:46] LABS: ALANINE AMINOTRANSFERASE 24 U/L (12-78); ALBUMIN 1.6 g/dL (3.4-4.8); ANION GAP 17 (5-15); ASPARTATE AMINOTRANSFERASE 31 U/L (10-37); CALCIUM 8.6 mg/dL (8.4-11.0); CHLORIDE 101 mmol/L (98-107); CREATININE 4.18 mg/dL (0.55-1.30); GLUCOSE 100 mg/dL (70-99); SODIUM SERUM 137 mmol/L (136-145); TOTAL BILIRUBIN 0.6 mg/dL (0.0-1.0); UREA NITROGEN, BLOOD 85 mg/dL (8-21)
[2018-01-23 08:07] LABS: BAND % (MANUAL) 9 % (0-6); BASOPHILS % (MANUAL) 0 % (0-2); EOSINOPHILS % (MANUAL) 0 % (0-7); LYMPHOCYTES % (MANUAL) 2 % (20-46); MONOCYTES % (MANUAL) 8 % (0-11)
[2018-01-23] MEDS: HYDROCORTISONE SOD SUCC 100 MG/2 ML VIAL IVP SCH (08:12)
[2018-01-23] MEDS: levETIRAcetam 500 MG in NS 100 ML IV SCH ×2 (08:12→20:28)
[2018-01-23] MEDS: PANTOPRAZOLE SODIUM 40 MG/VIAL (PROTONIX) IVP SCH ×2 (08:12→20:28)
[2018-01-23 08:18] LABS: PLATELET COUNT (AUTO) 208 K/uL (130-430)
[2018-01-23] MEDS ORDERED: LEVOFLOXACIN 500 MG/D5W 100 ML IV SCH (09:00)
[2018-01-23 12:07] LABS: HEPATITIS B SURFACE AG Negative (Negative); HEPATITIS C VIRUS AB 0.1 s/co ratio (0.0-0.9)
[2018-01-23] MEDS: CEFEPIME 1 GM in D5W 50 ML IV SCH (14:00)
[2018-01-23] MEDS: FLUCONAZOLE 200 mg/ NS 100 ML IV SCH (17:13)
[2018-01-23] MEDS: PIPERACILLIN/TAZO 2.25G/DEX-IS 50 ML IV SCH ×2 (18:14→23:07)
[2018-01-24] VITALS (31 sets, daily range): BP systolic 70–129
[2018-01-24] MEDS: ALBUTEROL SULFATE 0.083% 2.5 MG/3 ML VIAL.NEB INH SCH ×4 (01:30→20:07)
[2018-01-24] MEDS: IPRATROPIUM BROM 0.5 MG/2.5 ML VIAL.NEB (ATROVENT) INH SCH ×4 (01:31→20:08)
[2018-01-24] MEDS: 0.45% NACL 1,000 ML IV SCH ×2 (03:11→10:51)
[2018-01-24] MEDS: PIPERACILLIN/TAZO 2.25G/DEX-IS 50 ML IV SCH ×4 (05:39→23:14)
[2018-01-24 06:53] LABS: BASOPHILS # (AUTO) 0.2 K/uL (0.0-0.2); BASOPHILS % (AUTO) 0.6 % (0.0-2.0); EOSINOPHILS # (AUTO) 0.1 K/uL (0.0-0.4); EOSINOPHILS % (AUTO) 0.2 % (0.0-4.0); HEMOGLOBIN 7.2 g/dL (12.0-16.0); LYMPHOCYTES # (AUTO) 0.6 K/uL (1.0-5.5); LYMPHOCYTES % (AUTO) 1.8 % (20.5-51.5); MEAN CORPUSCULAR HEMOGLOBIN 27 pg (27-31); MEAN CORPUSCULAR HGB CONC 33 % (32-36); MEAN CORPUSCULAR VOLUME 80 fL (79.0-98.0); MONOCYTES # (AUTO) 0.9 K/uL (0.0-1.0); NEUTROPHILS # (AUTO) 28.8 K/uL (1.8-7.7); NEUTROPHILS % (AUTO) 94.4 % (40.0-70.0); PLATELET COUNT (AUTO) 176 K/uL (130-430); RED BLOOD CELL COUNT(AUTO) 2.71 MIL/uL (4.2-6.2); RED CELL DISTRIBUTION WIDTH 27.7 % (9.0-15.0)
[2018-01-24 07:20] LABS: ALANINE AMINOTRANSFERASE 18 U/L (12-78); ALBUMIN 1.1 g/dL (3.4-4.8); ANION GAP 19 (5-15); ASPARTATE AMINOTRANSFERASE 25 U/L (10-37); CALCIUM 8.2 mg/dL (8.4-11.0); CHLORIDE 97 mmol/L (98-107); CREATININE 4.25 mg/dL (0.55-1.30); GLUCOSE 93 mg/dL (70-99); POTASSIUM 3.1 mmol/L (3.5-5.1); SODIUM SERUM 133 mmol/L (136-145); TOTAL BILIRUBIN 0.7 mg/dL (0.0-1.0); UREA NITROGEN, BLOOD 95 mg/dL (8-21)
[2018-01-24 07:55] LABS: HEMATOCRIT 21.6 % (36-48)
[2018-01-24 07:56] LABS: WHITE BLOOD COUNT (AUTO) 30.6 K/uL (4.8-10.8)
[2018-01-24] MEDS: levETIRAcetam 500 MG in NS 100 ML IV SCH ×2 (08:33→21:03)
[2018-01-24] MEDS: PANTOPRAZOLE SODIUM 40 MG/VIAL (PROTONIX) IVP SCH ×2 (08:33→21:03)
[2018-01-24] MEDS ORDERED: POTASSIUM CHLORIDE 40 MEQ in NS 250 ML IV ONE (11:00)
[2018-01-24] MEDS: FLUCONAZOLE 200 mg/ NS 100 ML IV SCH (17:04)
[2018-01-24] MEDS: IPRATROPIUM BROM 0.5 MG/2.5 ML VIAL.NEB (ATROVENT) INH PRN (23:23)
[2018-01-24] MEDS: ALBUTEROL SULFATE 0.083% 2.5 MG/3 ML VIAL.NEB INH PRN (23:23)
[2018-01-25] VITALS (31 sets, daily range): BP systolic 107–137
[2018-01-25] MEDS: ALBUTEROL SULFATE 0.083% 2.5 MG/3 ML VIAL.NEB INH SCH ×4 (02:03→19:35)
[2018-01-25] MEDS: IPRATROPIUM BROM 0.5 MG/2.5 ML VIAL.NEB (ATROVENT) INH SCH ×4 (02:04→19:35)
[2018-01-25] MEDS: 0.45% NACL 1,000 ML IV SCH ×2 (03:55→17:25)
[2018-01-25] MEDS: PIPERACILLIN/TAZO 2.25G/DEX-IS 50 ML IV SCH ×3 (05:03→18:00)
[2018-01-25 06:08] LABS: ALANINE AMINOTRANSFERASE 18 U/L (12-78); ANION GAP 16 (5-15); ASPARTATE AMINOTRANSFERASE 41 U/L (10-37); CALCIUM 7.9 mg/dL (8.4-11.0); CHLORIDE 96 mmol/L (98-107); CREATININE 3.49 mg/dL (0.55-1.30); GLUCOSE 108 mg/dL (70-99); POTASSIUM 3.4 mmol/L (3.5-5.1); SODIUM SERUM 131 mmol/L (136-145); TOTAL BILIRUBIN 1.5 mg/dL (0.0-1.0); UREA NITROGEN, BLOOD 70 mg/dL (8-21)
[2018-01-25 07:05] LABS: HEMATOCRIT 31.3 % (36-48); HEMOGLOBIN 10.9 g/dL (12.0-16.0); MEAN CORPUSCULAR HEMOGLOBIN 29 pg (27-31); MEAN CORPUSCULAR HGB CONC 35 % (32-36); MEAN CORPUSCULAR VOLUME 84 fL (79.0-98.0); PLATELET COUNT (AUTO) 151 K/uL (130-430); RED BLOOD CELL COUNT(AUTO) 3.75 MIL/uL (4.2-6.2)
[2018-01-25] MEDS: PANTOPRAZOLE SODIUM 40 MG/VIAL (PROTONIX) IVP SCH ×2 (08:43→21:22)
[2018-01-25] MEDS: levETIRAcetam 500 MG in NS 100 ML IV SCH ×2 (08:44→21:21)
[2018-01-25 09:17] LABS: INR 1.2 (0.8-1.2); PROTHROMBIN TIME 12.4 SECS (9.5-12.5)
[2018-01-25 10:36] LABS: ATYPICAL LYMPHOCYTES % 0 % (0-0); BAND % (MANUAL) 20 % (0-6); BASOPHILS % (MANUAL) 0 % (0-2); CORRECTED WHITE BLOOD COUNT 38.1 K/uL (4.5-11.0); EOSINOPHILS % (MANUAL) 0 % (0-7); LYMPHOCYTES % (MANUAL) 5 % (20-46); MONOCYTES % (MANUAL) 6 % (0-11)
[2018-01-25 10:37] LABS: METAMYELOCYTES % 4 % (0-0); MYELOCYTES % 4 % (0-0)
[2018-01-25] MEDS: METOCLOPRAMIDE HCL 10 MG/2 ML VIAL IVP SCH ×2 (13:22→21:22)
[2018-01-25] MEDS: FLUCONAZOLE 200 mg/ NS 100 ML IV SCH (17:25)
[2018-01-26] VITALS (27 sets, daily range): BP systolic 107–139
[2018-01-26] MEDS: PIPERACILLIN/TAZO 2.25G/DEX-IS 50 ML IV SCH ×5 (00:18→23:26)
[2018-01-26] MEDS: ALBUTEROL SULFATE 0.083% 2.5 MG/3 ML VIAL.NEB INH SCH ×4 (01:01→20:02)
[2018-01-26] MEDS: IPRATROPIUM BROM 0.5 MG/2.5 ML VIAL.NEB (ATROVENT) INH SCH ×4 (01:01→20:02)
[2018-01-26] MEDS: METOCLOPRAMIDE HCL 10 MG/2 ML VIAL IVP SCH ×3 (06:22→22:30)
[2018-01-26] MEDS ORDERED: levETIRAcetam 500 MG TABLET ONE (09:13)
[2018-01-26] MEDS ORDERED: PANTOPRAZOLE SODIUM 40 MG/VIAL (PROTONIX) ONE (09:14)
[2018-01-26] MEDS: levETIRAcetam 500 MG in NS 100 ML IV SCH ×2 (09:16→21:01)
[2018-01-26] MEDS: PANTOPRAZOLE SODIUM 40 MG/VIAL (PROTONIX) IVP SCH ×2 (09:16→21:00)
[2018-01-26 10:03] LABS: ALANINE AMINOTRANSFERASE 22 U/L (12-78); ANION GAP 19 (5-15); ASPARTATE AMINOTRANSFERASE 50 U/L (10-37); CALCIUM 8.3 mg/dL (8.4-11.0); CHLORIDE 96 mmol/L (98-107); GLUCOSE 91 mg/dL (70-99); POTASSIUM 3.9 mmol/L (3.5-5.1); SODIUM SERUM 133 mmol/L (136-145); TOTAL BILIRUBIN 1.6 mg/dL (0.0-1.0); UREA NITROGEN, BLOOD 84 mg/dL (8-21)
[2018-01-26] MEDS ORDERED: LIDOCAINE/EPI 1% 1:100000 20 ML VIAL INJ ONE (11:14)
[2018-01-26] MEDS ORDERED: NS IRRIG SOLN 1000 ML IR ONE (11:14)
[2018-01-26] MEDS ORDERED: D5/0.45 NS 1,000 ML IV.SOLN IV ONE (11:14)
[2018-01-26] MEDS ORDERED: fentaNYL CITRATE/PF 100 MCG/2 ML AMP IVP ONE (11:14)
[2018-01-26] MEDS ORDERED: MIDAZOLAM HCL 5 MG/ML VIAL (VERSED) IV ONE (11:14)
[2018-01-26] MEDS ORDERED: MIVACURIUM CHLORIDE 20 MG/10 ML VIAL (MIVACRON) INJ ONE (11:14)
[2018-01-26 11:43] LABS: WHITE BLOOD COUNT (AUTO) 32.2 K/uL (4.8-10.8)
[2018-01-26 11:44] LABS: MEAN CORPUSCULAR HEMOGLOBIN 28 pg (27-31); MEAN CORPUSCULAR HGB CONC 34 % (32-36); MEAN CORPUSCULAR VOLUME 83 fL (79.0-98.0); PLATELET COUNT (AUTO) 163 K/uL (130-430); RED BLOOD CELL COUNT(AUTO) 3.85 MIL/uL (4.2-6.2); RED CELL DISTRIBUTION WIDTH 23.6 % (9.0-15.0)
[2018-01-26 11:45] LABS: BASOPHILS # (AUTO) 0.4 K/uL (0.0-0.2); BASOPHILS % (AUTO) 1.3 % (0.0-2.0); EOSINOPHILS # (AUTO) 0.4 K/uL (0.0-0.4); EOSINOPHILS % (AUTO) 1.1 % (0.0-4.0); HEMOGLOBIN 10.8 g/dL (12.0-16.0); LYMPHOCYTES # (AUTO) 1.2 K/uL (1.0-5.5); LYMPHOCYTES % (AUTO) 3.7 % (20.5-51.5); MONOCYTES # (AUTO) 0.2 K/uL (0.0-1.0); MONOCYTES % (AUTO) 0.7 % (1.7-9.3); NEUTROPHILS # (AUTO) 30.5 K/uL (1.8-7.7); NEUTROPHILS % (AUTO) 93.2 % (40.0-70.0)
[2018-01-26] MEDS: 0.45% NACL 1,000 ML IV SCH (12:29)
[2018-01-26] MEDS: metroNIDAZOLE 250 mg/NS 50 ML IV SCH ×2 (14:08→22:31)
[2018-01-26] MEDS: FLUCONAZOLE 200 mg/ NS 100 ML IV SCH (17:28)
[2018-01-27] VITALS (29 sets, daily range): BP systolic 96–152
[2018-01-27] MEDS: ALBUTEROL SULFATE 0.083% 2.5 MG/3 ML VIAL.NEB INH SCH ×4 (01:02→20:00)
[2018-01-27] MEDS: IPRATROPIUM BROM 0.5 MG/2.5 ML VIAL.NEB (ATROVENT) INH SCH ×4 (01:02→20:01)
[2018-01-27] MEDS: METOCLOPRAMIDE HCL 10 MG/2 ML VIAL IVP SCH ×3 (06:00→21:54)
[2018-01-27] MEDS: PIPERACILLIN/TAZO 2.25G/DEX-IS 50 ML IV SCH ×4 (06:00→23:41)
[2018-01-27] MEDS: metroNIDAZOLE 250 mg/NS 50 ML IV SCH ×3 (06:00→21:51)
[2018-01-27] MEDS ORDERED: POTASSIUM CHLORIDE 20 MEQ/PKT PACKET PO ONE (07:15)
[2018-01-27] MEDS ORDERED: SODIUM BICARBONATE 8.4% JECT 50 MEQ/50 ML SYRINGE IVP ONE ×2 (08:15→13:30)
[2018-01-27] MEDS: PANTOPRAZOLE SODIUM 40 MG/VIAL (PROTONIX) IVP SCH ×2 (08:23→21:50)
[2018-01-27] MEDS ORDERED: SODIUM BICARBONATE 8.4% JECT 50 MEQ/50 ML SYRINGE ONE (08:23)
[2018-01-27] MEDS: levETIRAcetam 500 MG in NS 100 ML IV SCH ×2 (08:23→21:50)
[2018-01-27] MEDS: 0.45% NACL 1,000 ML IV SCH (08:30)
[2018-01-27 09:19] LABS: HEMATOCRIT 29.3 % (36-48); HEMOGLOBIN 9.8 g/dL (12.0-16.0); MEAN CORPUSCULAR HEMOGLOBIN 28 pg (27-31); MEAN CORPUSCULAR HGB CONC 34 % (32-36); MEAN CORPUSCULAR VOLUME 84 fL (79.0-98.0); PLATELET COUNT (AUTO) 146 K/uL (130-430); RED BLOOD CELL COUNT(AUTO) 3.51 MIL/uL (4.2-6.2); RED CELL DISTRIBUTION WIDTH 23.3 % (9.0-15.0); WHITE BLOOD COUNT (AUTO) 28.5 K/uL (4.8-10.8)
[2018-01-27] MEDS ORDERED: POTASSIUM CHLORIDE 20 MEQ/PKT PACKET ONE (09:25)
[2018-01-27 09:30] LABS: ALANINE AMINOTRANSFERASE 21 U/L (12-78); ALBUMIN 0.9 g/dL (3.4-4.8); ANION GAP 20 (5-15); ASPARTATE AMINOTRANSFERASE 48 U/L (10-37); CALCIUM 8.4 mg/dL (8.4-11.0); CHLORIDE 94 mmol/L (98-107); CREATININE 4.53 mg/dL (0.55-1.30); GLUCOSE 120 mg/dL (70-99); POTASSIUM 3.7 mmol/L (3.5-5.1); SODIUM SERUM 132 mmol/L (136-145); TOTAL BILIRUBIN 1.6 mg/dL (0.0-1.0); UREA NITROGEN, BLOOD 87 mg/dL (8-21)
[2018-01-27 10:16] LABS: BAND % (MANUAL) 18 % (0-6); BASOPHILS % (MANUAL) 0 % (0-2); EOSINOPHILS % (MANUAL) 0 % (0-7); LYMPHOCYTES % (MANUAL) 5 % (20-46); MONOCYTES % (MANUAL) 7 % (0-11)
[2018-01-27] MEDS ORDERED: SODIUM BICARBONATE 8.4% VIAL 50 MEQ/50 ML VIAL INJ ONE (11:15)
[2018-01-27] MEDS: NACL 0.9% 1,000 ML IV SCH (13:45)
[2018-01-27] MEDS ORDERED: HEPARIN SODIUM,PORCINE 5000 UNITS/ML VIAL ONE (16:58)
[2018-01-27] MEDS: FLUCONAZOLE 200 mg/ NS 100 ML IV SCH ×2 (18:01→18:05)
[2018-01-27] MEDS ORDERED: NOREPINEPHRINE 4 MG/4 ML VIAL IV ONE (20:50)
[2018-01-27] MEDS ORDERED: NOREPINEPHRINE BITARTRATE 4 MG in NS 246 ML IV PRN (21:15)
[2018-01-28] VITALS (28 sets, daily range): BP systolic 109–140
[2018-01-28] MEDS: ALBUTEROL SULFATE 0.083% 2.5 MG/3 ML VIAL.NEB INH SCH ×4 (01:00→19:43)
[2018-01-28] MEDS: IPRATROPIUM BROM 0.5 MG/2.5 ML VIAL.NEB (ATROVENT) INH SCH ×4 (01:00→19:43)
[2018-01-28] MEDS: PIPERACILLIN/TAZO 2.25G/DEX-IS 50 ML IV SCH ×4 (06:10→23:50)
[2018-01-28] MEDS: metroNIDAZOLE 250 mg/NS 50 ML IV SCH (06:10)
[2018-01-28 06:12] LABS: HEMATOCRIT 28.1 % (36-48); HEMOGLOBIN 9.6 g/dL (12.0-16.0); MEAN CORPUSCULAR HEMOGLOBIN 28 pg (27-31); MEAN CORPUSCULAR HGB CONC 34 % (32-36); MEAN CORPUSCULAR VOLUME 83 fL (79.0-98.0); PLATELET COUNT (AUTO) 114 K/uL (130-430); RED BLOOD CELL COUNT(AUTO) 3.39 MIL/uL (4.2-6.2); RED CELL DISTRIBUTION WIDTH 23.8 % (9.0-15.0)
[2018-01-28 06:17] LABS: WHITE BLOOD COUNT (AUTO) 35.5 K/uL (4.8-10.8)
[2018-01-28 06:27] LABS: ALANINE AMINOTRANSFERASE 26 U/L (12-78); ALBUMIN 0.8 g/dL (3.4-4.8); ANION GAP 16 (5-15); ASPARTATE AMINOTRANSFERASE 61 U/L (10-37); CALCIUM 8.1 mg/dL (8.4-11.0); CHLORIDE 99 mmol/L (98-107); CREATININE 3.69 mg/dL (0.55-1.30); GLUCOSE 97 mg/dL (70-99); POTASSIUM 3.5 mmol/L (3.5-5.1); SODIUM SERUM 135 mmol/L (136-145); TOTAL BILIRUBIN 1.7 mg/dL (0.0-1.0); UREA NITROGEN, BLOOD 68 mg/dL (8-21)
[2018-01-28 06:29] LABS: BAND % (MANUAL) 14 % (0-6); BASOPHILS % (MANUAL) 0 % (0-2); EOSINOPHILS % (MANUAL) 0 % (0-7); LYMPHOCYTES % (MANUAL) 1 % (20-46); METAMYELOCYTES % 3 % (0-0); MONOCYTES % (MANUAL) 5 % (0-11)
[2018-01-28] MEDS: PANTOPRAZOLE SODIUM 40 MG/VIAL (PROTONIX) IVP SCH ×2 (09:22→20:16)
[2018-01-28] MEDS: levETIRAcetam 500 MG in NS 100 ML IV SCH ×2 (09:22→20:16)
[2018-01-28] MEDS: NACL 0.9% 1,000 ML IV SCH (09:23)
[2018-01-28] MEDS ORDERED: HEPARIN SODIUM,PORCINE 5000 UNITS/ML VIAL ONE (14:08)
[2018-01-29] VITALS (32 sets, daily range): BP systolic 105–140
[2018-01-29] MEDS: IPRATROPIUM BROM 0.5 MG/2.5 ML VIAL.NEB (ATROVENT) INH SCH ×4 (01:47→19:36)
[2018-01-29] MEDS: ALBUTEROL SULFATE 0.083% 2.5 MG/3 ML VIAL.NEB INH SCH ×4 (01:47→19:36)
[2018-01-29] MEDS: NACL 0.9% 1,000 ML IV SCH (03:15)
[2018-01-29] MEDS: PIPERACILLIN/TAZO 2.25G/DEX-IS 50 ML IV SCH ×4 (06:03→23:31)
[2018-01-29 06:31] LABS: INR 1.3 (0.8-1.2); PROTHROMBIN TIME 13.5 SECS (9.5-12.5)
[2018-01-29 06:32] LABS: ALANINE AMINOTRANSFERASE 30 U/L (12-78); ALBUMIN 0.8 g/dL (3.4-4.8); ANION GAP 13 (5-15); ASPARTATE AMINOTRANSFERASE 60 U/L (10-37); CALCIUM 7.6 mg/dL (8.4-11.0); CHLORIDE 102 mmol/L (98-107); CREATININE 3.83 mg/dL (0.55-1.30); GLUCOSE 119 mg/dL (70-99); POTASSIUM 3.2 mmol/L (3.5-5.1); SODIUM SERUM 133 mmol/L (136-145); TOTAL BILIRUBIN 1.8 mg/dL (0.0-1.0); UREA NITROGEN, BLOOD 75 mg/dL (8-21)
[2018-01-29 06:41] LABS: HEMATOCRIT 25.3 % (36-48); HEMOGLOBIN 8.4 g/dL (12.0-16.0); MEAN CORPUSCULAR HEMOGLOBIN 28 pg (27-31); MEAN CORPUSCULAR HGB CONC 33 % (32-36); MEAN CORPUSCULAR VOLUME 84 fL (79.0-98.0); PLATELET COUNT (AUTO) 124 K/uL (130-430); RED BLOOD CELL COUNT(AUTO) 3.01 MIL/uL (4.2-6.2); RED CELL DISTRIBUTION WIDTH 24.5 % (9.0-15.0)
[2018-01-29 07:31] LABS: WHITE BLOOD COUNT (AUTO) 31.6 K/uL (4.8-10.8)
[2018-01-29] MEDS: PANTOPRAZOLE SODIUM 40 MG/VIAL (PROTONIX) IVP SCH ×2 (08:04→20:51)
[2018-01-29] MEDS: levETIRAcetam 500 MG in NS 100 ML IV SCH ×2 (08:04→20:52)
[2018-01-29 08:30] LABS: BAND % (MANUAL) 20 % (0-6); BASOPHILS % (MANUAL) 0 % (0-2); EOSINOPHILS % (MANUAL) 0 % (0-7); LYMPHOCYTES % (MANUAL) 2 % (20-46); METAMYELOCYTES % 1 % (0-0); MONOCYTES % (MANUAL) 4 % (0-11)
[2018-01-29 08:31] LABS: MYELOCYTES % 2 % (0-0)
[2018-01-30] VITALS (29 sets, daily range): BP systolic 111–133
[2018-01-30] MEDS: ALBUTEROL SULFATE 0.083% 2.5 MG/3 ML VIAL.NEB INH SCH ×4 (00:39→19:35)
[2018-01-30] MEDS: IPRATROPIUM BROM 0.5 MG/2.5 ML VIAL.NEB (ATROVENT) INH SCH ×4 (00:39→19:35)
[2018-01-30] MEDS: NACL 0.9% 1,000 ML IV SCH (05:04)
[2018-01-30] MEDS: PIPERACILLIN/TAZO 2.25G/DEX-IS 50 ML IV SCH ×4 (05:05→23:25)
[2018-01-30] MEDS ORDERED: CEFAZOLIN 1 GM IVPB PREMIX 50 ML IV ONE (06:15)
[2018-01-30 06:26] LABS: BASOPHILS # (AUTO) 0.3 K/uL (0.0-0.2); BASOPHILS % (AUTO) 0.9 % (0.0-2.0); EOSINOPHILS # (AUTO) 0.1 K/uL (0.0-0.4); EOSINOPHILS % (AUTO) 0.2 % (0.0-4.0); HEMATOCRIT 26.6 % (36-48); HEMOGLOBIN 9.1 g/dL (12.0-16.0); LYMPHOCYTES # (AUTO) 0.5 K/uL (1.0-5.5); LYMPHOCYTES % (AUTO) 1.7 % (20.5-51.5); MEAN CORPUSCULAR HEMOGLOBIN 28 pg (27-31); MEAN CORPUSCULAR HGB CONC 34 % (32-36); MEAN CORPUSCULAR VOLUME 83 fL (79.0-98.0); MONOCYTES # (AUTO) 0.3 K/uL (0.0-1.0); MONOCYTES % (AUTO) 0.9 % (1.7-9.3); NEUTROPHILS # (AUTO) 30.5 K/uL (1.8-7.7); NEUTROPHILS % (AUTO) 96.3 % (40.0-70.0); RED BLOOD CELL COUNT(AUTO) 3.22 MIL/uL (4.2-6.2); RED CELL DISTRIBUTION WIDTH 24.3 % (9.0-15.0)
[2018-01-30 06:44] LABS: INR 1.3 (0.8-1.2)
[2018-01-30 06:51] LABS: ANION GAP 17 (5-15); CALCIUM 8.1 mg/dL (8.4-11.0); CHLORIDE 101 mmol/L (98-107); CREATININE 3.27 mg/dL (0.55-1.30); GLUCOSE 93 mg/dL (70-99); POTASSIUM 3.3 mmol/L (3.5-5.1); SODIUM SERUM 138 mmol/L (136-145); UREA NITROGEN, BLOOD 62 mg/dL (8-21)
[2018-01-30 07:01] LABS: ALANINE AMINOTRANSFERASE 40 U/L (12-78); ALBUMIN 0.8 g/dL (3.4-4.8); ASPARTATE AMINOTRANSFERASE 76 U/L (10-37); TOTAL BILIRUBIN 1.8 mg/dL (0.0-1.0)
[2018-01-30] MEDS ORDERED: fentaNYL CITRATE/PF 100 MCG/2 ML AMP ONE (07:05)
[2018-01-30] MEDS ORDERED: MIDAZOLAM HCL 5 MG/5 ML VIAL ONE (07:06)
[2018-01-30] MEDS ORDERED: SIMETHICONE 40 MG/0.6 ML ML ONE (07:06)
[2018-01-30 07:08] LABS: WHITE BLOOD COUNT (AUTO) 31.7 K/uL (4.8-10.8)
[2018-01-30 07:23] LABS: PLATELET COUNT (AUTO) 134 K/uL (130-430)
[2018-01-30] MEDS: PANTOPRAZOLE SODIUM 40 MG/VIAL (PROTONIX) IVP SCH ×2 (07:59→20:14)
[2018-01-30] MEDS: levETIRAcetam 500 MG in NS 100 ML IV SCH ×2 (07:59→20:14)
[2018-01-30] MEDS ORDERED: POTASSIUM CHLORIDE 20 MEQ/PKT PACKET PO ONE (14:45)
[2018-01-31] VITALS (34 sets, daily range): BP systolic 104–141
[2018-01-31] MEDS: ALBUTEROL SULFATE 0.083% 2.5 MG/3 ML VIAL.NEB INH SCH ×4 (00:12→19:39)
[2018-01-31] MEDS: IPRATROPIUM BROM 0.5 MG/2.5 ML VIAL.NEB (ATROVENT) INH SCH ×4 (00:12→19:39)
[2018-01-31] MEDS: NACL 0.9% 1,000 ML IV SCH (05:13)
[2018-01-31] MEDS: PIPERACILLIN/TAZO 2.25G/DEX-IS 50 ML IV SCH ×3 (05:13→17:32)
[2018-01-31] MEDS: PANTOPRAZOLE SODIUM 40 MG/VIAL (PROTONIX) IVP SCH ×2 (08:31→21:23)
[2018-01-31] MEDS: levETIRAcetam 500 MG in NS 100 ML IV SCH ×2 (08:31→21:23)
[2018-01-31 09:15] LABS: BASOPHILS # (AUTO) 0.2 K/uL (0.0-0.2); BASOPHILS % (AUTO) 0.6 % (0.0-2.0); EOSINOPHILS # (AUTO) 0.1 K/uL (0.0-0.4); EOSINOPHILS % (AUTO) 0.2 % (0.0-4.0); HEMATOCRIT 26.4 % (36-48); LYMPHOCYTES % (AUTO) 3.4 % (20.5-51.5); MEAN CORPUSCULAR HEMOGLOBIN 28 pg (27-31); MEAN CORPUSCULAR HGB CONC 34 % (32-36); MEAN CORPUSCULAR VOLUME 82 fL (79.0-98.0); MONOCYTES # (AUTO) 0.4 K/uL (0.0-1.0); MONOCYTES % (AUTO) 1.3 % (1.7-9.3); NEUTROPHILS # (AUTO) 27.2 K/uL (1.8-7.7); NEUTROPHILS % (AUTO) 94.5 % (40.0-70.0); PLATELET COUNT (AUTO) 146 K/uL (130-430); RED BLOOD CELL COUNT(AUTO) 3.22 MIL/uL (4.2-6.2); RED CELL DISTRIBUTION WIDTH 24.6 % (9.0-15.0); WHITE BLOOD COUNT (AUTO) 28.9 K/uL (4.8-10.8)
[2018-01-31 09:24] LABS: ALANINE AMINOTRANSFERASE 32 U/L (12-78); ALBUMIN 0.8 g/dL (3.4-4.8); ANION GAP 18 (5-15); ASPARTATE AMINOTRANSFERASE 48 U/L (10-37); CALCIUM 8.6 mg/dL (8.4-11.0); CHLORIDE 100 mmol/L (98-107); CREATININE 3.72 mg/dL (0.55-1.30); GLUCOSE 119 mg/dL (70-99); SODIUM SERUM 137 mmol/L (136-145); UREA NITROGEN, BLOOD 70 mg/dL (8-21)
[2018-01-31] MEDS ORDERED: HEPARIN SODIUM,PORCINE 5000 UNITS/ML VIAL ONE (11:14)
[2018-01-31] MEDS ORDERED: ALTEPLASE 2 MG VIAL MC ONE (14:15)
[2018-01-31] MEDS: METOCLOPRAMIDE HCL 10 MG/2 ML VIAL IVP PRN (21:23)
[2018-02-01] VITALS (31 sets, daily range): BP systolic 75–134
[2018-02-01] MEDS: ALBUTEROL SULFATE 0.083% 2.5 MG/3 ML VIAL.NEB INH SCH ×4 (01:05→19:37)
[2018-02-01] MEDS: IPRATROPIUM BROM 0.5 MG/2.5 ML VIAL.NEB (ATROVENT) INH SCH ×4 (01:05→19:37)
[2018-02-01] MEDS: PIPERACILLIN/TAZO 2.25G/DEX-IS 50 ML IV SCH ×4 (05:15→17:20)
[2018-02-01 07:56] LABS: HEMATOCRIT 27.8 % (36-48); HEMOGLOBIN 9.4 g/dL (12.0-16.0); MEAN CORPUSCULAR HEMOGLOBIN 28 pg (27-31); MEAN CORPUSCULAR HGB CONC 34 % (32-36); MEAN CORPUSCULAR VOLUME 83 fL (79.0-98.0); PLATELET COUNT (AUTO) 140 K/uL (130-430); RED BLOOD CELL COUNT(AUTO) 3.35 MIL/uL (4.2-6.2); RED CELL DISTRIBUTION WIDTH 24.3 % (9.0-15.0); WHITE BLOOD COUNT (AUTO) 18.1 K/uL (4.8-10.8)
[2018-02-01 08:09] LABS: ALANINE AMINOTRANSFERASE 31 U/L (12-78); ANION GAP 18 (5-15); ASPARTATE AMINOTRANSFERASE 51 U/L (10-37); CALCIUM 8.4 mg/dL (8.4-11.0); CHLORIDE 100 mmol/L (98-107); CREATININE 2.45 mg/dL (0.55-1.30); GLUCOSE 137 mg/dL (70-99); POTASSIUM 3.4 mmol/L (3.5-5.1); SODIUM SERUM 141 mmol/L (136-145); UREA NITROGEN, BLOOD 48 mg/dL (8-21)
[2018-02-01] MEDS ORDERED: ALBUMIN HUMAN 25% 200 ML IV ONE ×2 (08:11→08:15)
[2018-02-01] MEDS ORDERED: COMMUNICATION ORDER XX ONE (08:15)
[2018-02-01] MEDS ORDERED: HEPARIN SODIUM,PORCINE 5000 UNITS/ML VIAL ONE (09:21)
[2018-02-01] MEDS: levETIRAcetam 500 MG in NS 100 ML IV SCH ×2 (10:00→21:20)
[2018-02-01] MEDS: PANTOPRAZOLE SODIUM 40 MG/VIAL (PROTONIX) IVP SCH ×2 (10:00→21:20)
[2018-02-01 10:44] LABS: BAND % (MANUAL) 3 % (0-6); BASOPHILS % (MANUAL) 0 % (0-2); EOSINOPHILS % (MANUAL) 1 % (0-7); LYMPHOCYTES % (MANUAL) 5 % (20-46); METAMYELOCYTES % 2 % (0-0); MONOCYTES % (MANUAL) 7 % (0-11)
[2018-02-01] MEDS: ALBUTEROL SULFATE 0.083% 2.5 MG/3 ML VIAL.NEB INH PRN (11:45)
[2018-02-01] MEDS: IPRATROPIUM BROM 0.5 MG/2.5 ML VIAL.NEB (ATROVENT) INH PRN (11:45)
[2018-02-01] MEDS ORDERED: LOPERAMIDE HCL 2 MG CAPSULE GT PRN (16:00)
[2018-02-01] MEDS: ONDANSETRON HCL 4 MG/2 ML VIAL IVP PRN (18:36)
[2018-02-02] VITALS (27 sets, daily range): BP systolic 93–130
[2018-02-02] MEDS: PIPERACILLIN/TAZO 2.25G/DEX-IS 50 ML IV SCH ×4 (00:30→17:24)
[2018-02-02] MEDS: IPRATROPIUM BROM 0.5 MG/2.5 ML VIAL.NEB (ATROVENT) INH SCH ×4 (00:58→19:27)
[2018-02-02] MEDS: ALBUTEROL SULFATE 0.083% 2.5 MG/3 ML VIAL.NEB INH SCH ×4 (00:58→19:27)
[2018-02-02 07:29] LABS: ALANINE AMINOTRANSFERASE 20 U/L (12-78); ALBUMIN 1.9 g/dL (3.4-4.8); ANION GAP 18 (5-15); ASPARTATE AMINOTRANSFERASE 38 U/L (10-37); CALCIUM 8.5 mg/dL (8.4-11.0); CHLORIDE 100 mmol/L (98-107); CREATININE 3.07 mg/dL (0.55-1.30); GLUCOSE 85 mg/dL (70-99); POTASSIUM 3.4 mmol/L (3.5-5.1); SODIUM SERUM 137 mmol/L (136-145); TOTAL BILIRUBIN 2.8 mg/dL (0.0-1.0); UREA NITROGEN, BLOOD 58 mg/dL (8-21)
[2018-02-02 07:40] LABS: HEMATOCRIT 24.9 % (36-48); HEMOGLOBIN 8.3 g/dL (12.0-16.0); MEAN CORPUSCULAR HEMOGLOBIN 28 pg (27-31); MEAN CORPUSCULAR HGB CONC 33 % (32-36); MEAN CORPUSCULAR VOLUME 83 fL (79.0-98.0); PLATELET COUNT (AUTO) 147 K/uL (130-430); RED BLOOD CELL COUNT(AUTO) 2.99 MIL/uL (4.2-6.2); WHITE BLOOD COUNT (AUTO) 20.9 K/uL (4.8-10.8)
[2018-02-02] MEDS ORDERED: KCL 20 mEq in 100 mL (PREMIX) 100 ML IV ONE (08:15)
[2018-02-02] MEDS: levETIRAcetam 500 MG in NS 100 ML IV SCH ×2 (08:34→20:34)
[2018-02-02] MEDS: PANTOPRAZOLE SODIUM 40 MG/VIAL (PROTONIX) IVP SCH ×2 (08:35→20:33)
[2018-02-02 11:54] LABS: CORRECTED WHITE BLOOD COUNT 19.7 K/uL (4.5-11.0)
[2018-02-02 11:55] LABS: BAND % (MANUAL) 25 % (0-6); BASOPHILS % (MANUAL) 0 % (0-2); EOSINOPHILS % (MANUAL) 0 % (0-7); LYMPHOCYTES % (MANUAL) 2 % (20-46); MONOCYTES % (MANUAL) 2 % (0-11)
[2018-02-03] VITALS (31 sets, daily range): BP systolic 97–137
[2018-02-03] MEDS: IPRATROPIUM BROM 0.5 MG/2.5 ML VIAL.NEB (ATROVENT) INH SCH ×4 (00:53→19:48)
[2018-02-03] MEDS: ALBUTEROL SULFATE 0.083% 2.5 MG/3 ML VIAL.NEB INH SCH ×4 (00:53→19:48)
[2018-02-03] MEDS: PIPERACILLIN/TAZO 2.25G/DEX-IS 50 ML IV SCH ×4 (05:47→18:39)
[2018-02-03 07:02] LABS: BASOPHILS # (AUTO) 0.3 K/uL (0.0-0.2); BASOPHILS % (AUTO) 1.6 % (0.0-2.0); EOSINOPHILS % (AUTO) 0.1 % (0.0-4.0); HEMOGLOBIN 8.4 g/dL (12.0-16.0); LYMPHOCYTES # (AUTO) 0.7 K/uL (1.0-5.5); LYMPHOCYTES % (AUTO) 3.5 % (20.5-51.5); MEAN CORPUSCULAR HEMOGLOBIN 27 pg (27-31); MEAN CORPUSCULAR HGB CONC 33 % (32-36); MEAN CORPUSCULAR VOLUME 83 fL (79.0-98.0); MONOCYTES # (AUTO) 0.2 K/uL (0.0-1.0); MONOCYTES % (AUTO) 1.1 % (1.7-9.3); NEUTROPHILS # (AUTO) 19.5 K/uL (1.8-7.7); NEUTROPHILS % (AUTO) 93.7 % (40.0-70.0); PLATELET COUNT (AUTO) 156 K/uL (130-430)
[2018-02-03 07:06] LABS: ALANINE AMINOTRANSFERASE 20 U/L (12-78); ALBUMIN 1.6 g/dL (3.4-4.8); ANION GAP 22 (5-15); ASPARTATE AMINOTRANSFERASE 37 U/L (10-37); CALCIUM 8.6 mg/dL (8.4-11.0); CHLORIDE 100 mmol/L (98-107); CREATININE 3.48 mg/dL (0.55-1.30); GLUCOSE 92 mg/dL (70-99); POTASSIUM 3.8 mmol/L (3.5-5.1); SODIUM SERUM 140 mmol/L (136-145); TOTAL BILIRUBIN 2.8 mg/dL (0.0-1.0); UREA NITROGEN, BLOOD 70 mg/dL (8-21)
[2018-02-03 07:11] LABS: RED BLOOD CELL COUNT(AUTO) 3.13 MIL/uL (4.2-6.2)
[2018-02-03] MEDS: levETIRAcetam 500 MG in NS 100 ML IV SCH ×2 (09:09→21:12)
[2018-02-03] MEDS: PANTOPRAZOLE SODIUM 40 MG/VIAL (PROTONIX) IVP SCH ×2 (09:10→21:12)
[2018-02-03 09:45] LABS: WHITE BLOOD COUNT (AUTO) 20.7 K/uL (4.8-10.8)
[2018-02-03] MEDS ORDERED: HEPARIN SODIUM,PORCINE 5000 UNITS/ML VIAL MC PRN (17:30)
[2018-02-04] VITALS (35 sets, daily range): BP systolic 109–147
[2018-02-04] MEDS: PIPERACILLIN/TAZO 2.25G/DEX-IS 50 ML IV SCH ×5 (00:44→23:49)
[2018-02-04] MEDS: ALBUTEROL SULFATE 0.083% 2.5 MG/3 ML VIAL.NEB INH SCH ×4 (00:56→18:37)
[2018-02-04] MEDS: IPRATROPIUM BROM 0.5 MG/2.5 ML VIAL.NEB (ATROVENT) INH SCH ×4 (00:56→18:37)
[2018-02-04 06:30] LABS: HEMATOCRIT 25.3 % (36-48); HEMOGLOBIN 8.5 g/dL (12.0-16.0); MEAN CORPUSCULAR HEMOGLOBIN 28 pg (27-31); MEAN CORPUSCULAR HGB CONC 34 % (32-36); MEAN CORPUSCULAR VOLUME 84 fL (79.0-98.0); PLATELET COUNT (AUTO) 172 K/uL (130-430); RED BLOOD CELL COUNT(AUTO) 3.02 MIL/uL (4.2-6.2); RED CELL DISTRIBUTION WIDTH 24.9 % (9.0-15.0)
[2018-02-04 06:40] LABS: ALANINE AMINOTRANSFERASE 23 U/L (12-78); ALBUMIN 1.4 g/dL (3.4-4.8); ANION GAP 18 (5-15); ASPARTATE AMINOTRANSFERASE 39 U/L (10-37); CALCIUM 8.4 mg/dL (8.4-11.0); CHLORIDE 101 mmol/L (98-107); CREATININE 2.85 mg/dL (0.55-1.30); GLUCOSE 134 mg/dL (70-99); SODIUM SERUM 139 mmol/L (136-145); TOTAL BILIRUBIN 2.3 mg/dL (0.0-1.0); UREA NITROGEN, BLOOD 56 mg/dL (8-21)
[2018-02-04] MEDS: levETIRAcetam 500 MG in NS 100 ML IV SCH ×2 (08:06→20:55)
[2018-02-04] MEDS: PANTOPRAZOLE SODIUM 40 MG/VIAL (PROTONIX) IVP SCH ×2 (08:06→20:55)
[2018-02-04 10:15] LABS: BAND % (MANUAL) 22 % (0-6); BASOPHILS % (MANUAL) 0 % (0-2); EOSINOPHILS % (MANUAL) 0 % (0-7); LYMPHOCYTES % (MANUAL) 3 % (20-46); MONOCYTES % (MANUAL) 7 % (0-11)
[2018-02-04 10:16] LABS: MYELOCYTES % 2 % (0-0)
[2018-02-04] MEDS ORDERED: POTASSIUM CHLORIDE 20 MEQ/PKT PACKET PO ONE (10:30)
[2018-02-05] VITALS (26 sets, daily range): BP systolic 110–147
[2018-02-05] MEDS: IPRATROPIUM BROM 0.5 MG/2.5 ML VIAL.NEB (ATROVENT) INH SCH ×4 (00:40→20:48)
[2018-02-05] MEDS: ALBUTEROL SULFATE 0.083% 2.5 MG/3 ML VIAL.NEB INH SCH ×4 (00:41→20:48)
[2018-02-05] MEDS: PIPERACILLIN/TAZO 2.25G/DEX-IS 50 ML IV SCH ×3 (05:12→18:38)
[2018-02-05 06:10] LABS: HEMATOCRIT 26.7 % (36-48); HEMOGLOBIN 8.9 g/dL (12.0-16.0); MEAN CORPUSCULAR HEMOGLOBIN 29 pg (27-31); MEAN CORPUSCULAR HGB CONC 33 % (32-36); MEAN CORPUSCULAR VOLUME 86 fL (79.0-98.0); PLATELET COUNT (AUTO) 184 K/uL (130-430); RED BLOOD CELL COUNT(AUTO) 3.12 MIL/uL (4.2-6.2); RED CELL DISTRIBUTION WIDTH 24.9 % (9.0-15.0); WHITE BLOOD COUNT (AUTO) 18.2 K/uL (4.8-10.8)
[2018-02-05 06:42] LABS: ALANINE AMINOTRANSFERASE 27 U/L (12-78); ALBUMIN 1.3 g/dL (3.4-4.8); ANION GAP 19 (5-15); ASPARTATE AMINOTRANSFERASE 41 U/L (10-37); CALCIUM 8.7 mg/dL (8.4-11.0); CHLORIDE 102 mmol/L (98-107); CREATININE 3.31 mg/dL (0.55-1.30); GLUCOSE 141 mg/dL (70-99); POTASSIUM 3.5 mmol/L (3.5-5.1); SODIUM SERUM 142 mmol/L (136-145); TOTAL BILIRUBIN 2.4 mg/dL (0.0-1.0); UREA NITROGEN, BLOOD 75 mg/dL (8-21)
[2018-02-05 08:59] LABS: BAND % (MANUAL) 27 % (0-6); BASOPHILS % (MANUAL) 0 % (0-2); CORRECTED WHITE BLOOD COUNT 16.5 K/uL (4.5-11.0); LYMPHOCYTES % (MANUAL) 2 % (20-46); MONOCYTES % (MANUAL) 9 % (0-11)
[2018-02-05 09:00] LABS: EOSINOPHILS % (MANUAL) 0 % (0-7); METAMYELOCYTES % 3 % (0-0); MYELOCYTES % 1 % (0-0)
[2018-02-05] MEDS: levETIRAcetam 500 MG in NS 100 ML IV SCH ×2 (09:47→20:25)
[2018-02-05] MEDS: PANTOPRAZOLE SODIUM 40 MG/VIAL (PROTONIX) IVP SCH ×2 (09:47→20:25)
[2018-02-06] MEDS: PIPERACILLIN/TAZO 2.25G/DEX-IS 50 ML IV SCH ×3 (00:05→13:14)
[2018-02-06 00:30] VITALS: BP_SYST 142
[2018-02-06] MEDS: ALBUTEROL SULFATE 0.083% 2.5 MG/3 ML VIAL.NEB INH SCH ×3 (01:40→13:16)
[2018-02-06] MEDS: IPRATROPIUM BROM 0.5 MG/2.5 ML VIAL.NEB (ATROVENT) INH SCH ×3 (01:40→13:17)
[2018-02-06 06:39] LABS: ANION GAP 21 (5-15); CALCIUM 8.7 mg/dL (8.4-11.0); CHLORIDE 104 mmol/L (98-107); CREATININE 2.87 mg/dL (0.55-1.30); GLUCOSE 128 mg/dL (70-99); SODIUM SERUM 144 mmol/L (136-145); UREA NITROGEN, BLOOD 72 mg/dL (8-21)
[2018-02-06 06:51] LABS: HEMATOCRIT 24.8 % (36-48); HEMOGLOBIN 8.8 g/dL (12.0-16.0); MEAN CORPUSCULAR HEMOGLOBIN 30 pg (27-31); MEAN CORPUSCULAR HGB CONC 36 % (32-36); MEAN CORPUSCULAR VOLUME 84 fL (79.0-98.0); PLATELET COUNT (AUTO) 166 K/uL (130-430); RED BLOOD CELL COUNT(AUTO) 2.95 MIL/uL (4.2-6.2); RED CELL DISTRIBUTION WIDTH 26.4 % (9.0-15.0)
[2018-02-06 06:56] LABS: WHITE BLOOD COUNT (AUTO) 38.5 K/uL (4.8-10.8)
[2018-02-06 08:25] LABS: ATYPICAL LYMPHOCYTES % 0 % (0-0); BAND % (MANUAL) 17 % (0-6); BASOPHILS % (MANUAL) 0 % (0-2); CORRECTED WHITE BLOOD COUNT 35.3 K/uL (4.5-11.0); EOSINOPHILS % (MANUAL) 0 % (0-7); LYMPHOCYTES % (MANUAL) 7 % (20-46); METAMYELOCYTES % 3 % (0-0); MONOCYTES % (MANUAL) 3 % (0-11); MYELOCYTES % 0 % (0-0)
[2018-02-06 08:55] VITALS: BP_SYST 118
[2018-02-06] MEDS: levETIRAcetam 500 MG in NS 100 ML IV SCH (10:03)
[2018-02-06] MEDS: PANTOPRAZOLE SODIUM 40 MG/VIAL (PROTONIX) IVP SCH (10:04)
[2018-02-06 12:35] VITALS: BP_SYST 139
[2018-02-06 12:46] VITALS: BP_SYST 122
[2018-02-06 14:03] VITALS: BP_SYST 118
[2018-02-06] MEDS ORDERED: VANCOMYCIN HCL 1 GM/NS PREMIX 250 ML IV ONE (15:00)
[2018-02-06 16:00] VITALS: BP_SYST 132
[2018-02-06] MEDS ORDERED: PIPERACILLIN/TAZO 2.25G/DEX-IS 50 ML IV SCH (18:00)
== END 2018-02-06 18:20 | DRG 4 ==
LOC: SED 20:20 → SIC 01-13 → STU 02-05 17:58
PROVIDERS: ADMIT Internal Medicine Hospice and Palliative Medicine; ATTEND Internal Medicine Hospice and Palliative Medicine
PROC: 5A1955Z Respiratory Ventilation, Greater than 96 Consecutive Hours (ICD-10-PCS; principal; 2018-01-13)
PROC: 0BH17EZ Insertion of Endotracheal Airway into Trachea, Via Natural or Artificial Opening (ICD-10-PCS; 2018-01-13)
PROC: 30233N1 Transfusion of Nonautologous Red Blood Cells into Peripheral Vein, Percutaneous Approach (ICD-10-PCS; 2018-01-13)
PROC: 02HV33Z Insertion of Infusion Device into Superior Vena Cava, Percutaneous Approach (ICD-10-PCS; 2018-01-13)
PROC: B548ZZA Ultrasonography of Superior Vena Cava, Guidance (ICD-10-PCS; 2018-01-13)
PROC: 5A1D70Z Performance of Urinary Filtration, Intermittent, Less than 6 Hours Per Day (ICD-10-PCS; 2018-01-22)
PROC: 02HV33Z Insertion of Infusion Device into Superior Vena Cava, Percutaneous Approach (ICD-10-PCS; 2018-01-22)
PROC: B548ZZA Ultrasonography of Superior Vena Cava, Guidance (ICD-10-PCS; 2018-01-22)
PROC: 5A1D70Z Performance of Urinary Filtration, Intermittent, Less than 6 Hours Per Day (ICD-10-PCS; 2018-01-24)
PROC: 0B110F4 Bypass Trachea to Cutaneous with Tracheostomy Device, Open Approach (ICD-10-PCS; 2018-01-26)
PROC: 5A1D70Z Performance of Urinary Filtration, Intermittent, Less than 6 Hours Per Day (ICD-10-PCS; 2018-01-27)
PROC: 02HV33Z Insertion of Infusion Device into Superior Vena Cava, Percutaneous Approach (ICD-10-PCS; 2018-01-27)
PROC: 02HV33Z Insertion of Infusion Device into Superior Vena Cava, Percutaneous Approach (ICD-10-PCS; 2018-01-28)
PROC: 5A1D70Z Performance of Urinary Filtration, Intermittent, Less than 6 Hours Per Day (ICD-10-PCS; 2018-01-29)
PROC: 0DH63UZ Insertion of Feeding Device into Stomach, Percutaneous Approach (ICD-10-PCS; 2018-01-30)
PROC: 5A1D70Z Performance of Urinary Filtration, Intermittent, Less than 6 Hours Per Day (ICD-10-PCS; 2018-02-01)
PROC: 5A1D70Z Performance of Urinary Filtration, Intermittent, Less than 6 Hours Per Day (ICD-10-PCS; 2018-02-03)
PROC: 5A1D70Z Performance of Urinary Filtration, Intermittent, Less than 6 Hours Per Day (ICD-10-PCS; 2018-02-05)
DX: A41.9 Sepsis, unspecified organism (principal); J69.0 Pneumonitis due to inhalation of food and vomit; I21.4 Non-ST elevation (NSTEMI) myocardial infarction; N17.0 Acute kidney failure with tubular necrosis; R65.21 Severe sepsis with septic shock; G93.41 Metabolic encephalopathy; I50.21 Acute systolic (congestive) heart failure; K29.71 Gastritis, unspecified, with bleeding; J96.01 Acute respiratory failure with hypoxia; K57.91 Diverticulosis of intestine, part unspecified, without perforation or abscess with bleeding; N39.0 Urinary tract infection, site not specified; E87.2 Acidosis; D62 Acute posthemorrhagic anemia; E87.0 Hyperosmolality and hypernatremia; I13.0 Hypertensive heart and chronic kidney disease with heart failure and stage 1 through stage 4 chronic kidney disease, or unspecified chronic kidney disease; R13.10 Dysphagia, unspecified; B96.20 Unspecified Escherichia coli [E. coli] as the cause of diseases classified elsewhere; M19.90 Unspecified osteoarthritis, unspecified site; K31.84 Gastroparesis; K20.9 Esophagitis, unspecified; G40.909 Epilepsy, unspecified, not intractable, without status epilepticus; E78.00 Pure hypercholesterolemia, unspecified; E86.1 Hypovolemia; I25.5 Ischemic cardiomyopathy; F02.80 Dementia in other diseases classified elsewhere, unspecified severity, without behavioral disturbance, psychotic disturbance, mood disturbance, and anxiety; N18.9 Chronic kidney disease, unspecified; G30.9 Alzheimer's disease, unspecified; I08.1 Rheumatic disorders of both mitral and tricuspid valves; T38.0X5A Adverse effect of glucocorticoids and synthetic analogues, initial encounter; Y92.89 Other specified places as the place of occurrence of the external cause; Z87.440 Personal history of urinary (tract) infections; Z87.891 Personal history of nicotine dependence; Z99.2 Dependence on renal dialysis; Z79.899 Other long term (current) drug therapy; Z88.0 Allergy status to penicillin
CPT/HCPCS: 36415; 36600; 43246; 71045; 74018; 80048; 80053; 80076; 81000-TC; 82272; 82803-TC; 82962; 83605; 83880; 84484; 85007; 85018-TC; 85025; 85027; 85610-TC; 85730-TC; 86803; 86886; 86900; 86901; 86920; 87040-TC; 87070-TC; 87081; 87086; 87186-TC; 87205-TC; 87230-TC; 87340; 90935; 90937; 93005; 93306; 94002; 94003; 94640; 96361; 96365; 96375; 99291; A6209; C1751; C1769; C9113; J0610; J0690; J0692; J1030; J1450; J1630; J1642; J1644; J1720; J1940; J1953; J1956; J2060; J2250; J2270; J2405; J2543; J2765; J2997; J3010; J3370; J3480; J3490; J7030; J7040; J7050; J7060; J7613; J7620; NO CODE; P9021; P9046